=== PATIENT | female | born 1990 | race Caucasian/White ===

== ENCOUNTER 2017-11-14 09:30 | Emergency (ER) | payer OTHER ==
[~2017-11-14] VITALS: Ht 170.2 cm; Wt 127.6 kg
[~2017-11-14 09:30] MED LIST: Feosol PO; Motrin PO; NOHOMEMEDS; PRENATAL TABLE1 EAC3 PO; VENTOLIN HFA18 GM IH
[2017-11-14] MEDS ORDERED: MOTRIN800 MG PO (10:45)
[2017-11-14 10:51] VITALS: BP 138/91
== END 2017-11-14 11:08 | disposition home or self-care (01) ==
LOC: EME 09:30
DX: S90.32XA Contusion of left foot, initial encounter (principal); X58.XXXA Exposure to other specified factors, initial encounter; F17.200 Nicotine dependence, unspecified, uncomplicated
CPT/HCPCS: 73610; 73630; 99281; 99283